=== PATIENT | female | born 1970 | race Caucasian/White ===

== ENCOUNTER 2021-07-04 16:48 | Inpatient (IN) | payer OTHER, SELFPAY ==
--- NOTE | 2021-06-28 11:41 | PCM.HP.BLA ---
History and Physical Date of Admission: 07/04/21 HPI: The patient is a 50 year old female presenting for pre-operative visit. She is scheduled for [facility], for AUB on 07/04/21. periods have gotten worse, they are heavy, bleeds through protection. Has completed child bearing nad had a previous Essure and endometrial ablation. Procedure discussed along with risks, benefits and complications. Other alternatives discussed for management. Consent form signed? Yes. ? ? PAST MEDICAL HISTORY PAST MEDICAL HISTORY Diagnosis Date ? History of deep vein thrombosis (DVT) of lower extremity 2010 ? approx, suspected due to OCPs. ? Parathyroid adenoma ? ? Thyroid disease ? ? ? PAST SURGICAL HISTORY PAST SURGICAL HISTORY Procedure Laterality Date ? ABDOMINAL SURGERY HX ? ? ? COLONOSCOP W/ OR W/O BRSH SPEC ? 05/01/2021 ? HERNIA REPAIR HX ? ? ? HYSTEROSCOPY,W/ENDOMETRIAL ABLATION ? 2005 ? approx, had dorsey to vagina ? LIGATE FALLOPIAN TUBE ? 2011 ? PAST SURGICAL HISTORY OF ? ? ? hernia repair ? PAST SURGICAL HISTORY OF ? ? ? T&A removal ? PAST SURGICAL HISTORY OF ? ? ? Left knee arthoscopic surgery ? PAST SURGICAL HISTORY OF ? 09/24/2006 ? Robotic right pyeloplasty ? TONSILLECTOMY HX ? CURRENT MEDICATIONS No current outpatient medications on file. ? Current Facility-Administered Medications Medication Dose Route Frequency Provider Last Rate Last Admin ? perflutren lipid microspheres 1.3 mL in NaCl (PF) 0.9% 10 mL injection (DEFINITY) INTRAVENOUS DIRECTED PRN V Yadiel Boytim, DO ? sodium chloride 0.9 % (flush) 10 mL (BD POSIFLUSH) 10 mL INTRAVENOUS DIRECTED PRN V Yadiel Boytim, DO ? ? ALLERGIES: Latex ? PERSONAL HISTORY: SOCIAL HISTORY Social History ? Tobacco Use ? Smoking status: Never Smoker ? Smokeless tobacco: Never Used Vaping Use ? Vaping Use: Never used Substance Use Topics ? Alcohol use: Yes ? ? Comment: seldom ? Drug use: Never ? FAMILY HISTORY: FAMILY HISTORY FAMILY HISTORY Problem Relation Age of Onset ? Prostate Cancer Father ? ? ? REVIEW OF SYMPTOMS: GENERAL: denies fevers or chills ENDOCRINOLOGY: has not been on steroids Cardiology : denies palpitations or chest pain Respiratory: denies SOB or cough Hematology: denies history of prolonged bleeding or easy bruising or VTE Allergy: Denies history of personal or family history of allergy to anesthesia PHYSICAL EXAMINATION: ? VITALS: Last menstrual period 04/17/2021. ? GENERAL: The patient is well nourished, well hydrated in no acute distress. , The patient is oriented to time, place, and person. NECK: Supple. No lynphadenopathy, normal thyroid, no thyromegaly. LUNGS: Clear to auscultation bilaterally. no wheezes, rhonchi or rales HEART: Regular rate and rhythm, Normal heart sounds and No murmurs or gallops GENITALIA: Normal external genitalia, Urethral meatus normal, Bladder nontender, normal vagina and normal vaginal tone, normal cervix, normal uterus, size and consistency, normal adnexa without masses or tenderness and perineum WNL ? PELVIC US 03/29/2021: ? Indication Abnormal uterine bleeding Impression anteverted Fibroid uterus that measures 100 mm x 54 mm x 60 mm. the largest fibroid is 1.6cm in greatest dimension. All fibroids appear to be intramural. The central endometrium complex measures 10.2 mm in combined thickness. No abnormal blood flow ?to suggest a polyp or focal endometrial pathology is observed within the endometrial complex. The contour of the endometrial cavity was normal on 3-D imaging. Both ovaries are visualized and appear normal. No adnexal masses were observed. There is no free fluid visualized in the peritoneal cavity. Other: h/o endometrial ablation, essure ? EMB 04/04/21- Early secretory phase endometrium and benign endocervical tissue ? IMPRESSION: AUB, failed ablation, intramural uterine fibroids ? PLAN: The risks/benefits/alternatives and personal involved for the planned TVH were reviewed with the patient. Her questions were answered to her satisfaction and she desires to proceed. Consent was signed. I reviewed with her postop instructions and expectations. ? ? I have reviewed and updated past medical and surgical history, medications and allergies This H&P was completed in my office on Jun 26, 2021
[2021-07-04] VITALS (35 sets, daily range): BP systolic 67–121; BP diastolic 46–74; PULSE 56–122; RESP 14–20; TEMP 36.2–37.4; O2SAT 94–100; BMI 29.0
--- NOTE | 2021-07-04 | IMM_PTH ---
PATIENT: LARA ARENAS LOC: MS3 U#:[id number] AGE/SX: 51/F [place]OM: [facility] [place] [place]07/04/[address]: Dr. Susanne Henry MD : 1970 BED: 1 DIS: 07/05/2021 SPEC #: [id number] RECD: 07/05/21 14:54 STATUS: MERVIN TOM #: [id number] TAYLOR: 07/04/21 00:[address]: Susanne Henry DEPT: IMMUNOHISTOCHEMISTRY RECD BY: Teresa Sharma Tissues: Uterus, NOS Procedures: p16 (initial) KI-67 (add) PHYSICIAN & [place] [id number] SPECIMEN INFORMATION: Tissue Source: Uterus Clinical Info: Abnormal uterine bleeding Specimen Number: [id number] #[id number] CPT code: 92248, 22673 METHODOLOGY: Deparaffinized sections of prefer/formalin-fixed tissue or PAP/DQ stained slides are incubated with monoclonal/polyclonal antibodies/oligonucleotide probes. Localization is made via biotin free immunoperoxidase method. Appropriate controls are performed and reacted as expected. Results on target cell population are indicated in the following table: RESULTS: ANTIBODY / CLONE RESULT Block 1 P16 (E6H4) negative Ki-67 (30-9) negative These tests were developed and their performance characteristics determined by [facility]. They may not have been cleared or approved by the U.S. Food and Drug Administration. The FDA has determined that such clearance or approval is not necessary. The above immunohistochemical/dualISH markers are ordered and reviewed by the Pathologist. INTERPRETATION: Uterus, hysterectomy: No HPV change seen. AM:tamar 07/08/2021
[2021-07-04] MEDS: Scopolamine 1mg/72hr Patch 1 PATCH TD (07:00)
[2021-07-04] MEDS: Acetaminophen 500 MG Tablet 1000 MG PO (07:00)
[2021-07-04] MEDS: Gabapentin 600 MG Tablet PO (07:00)
[2021-07-04] MEDS: Enoxaparin 40 MG/0.4 ML Syringe SC (07:00)
[2021-07-04] MEDS: Phenazopyridine 95 MG Tablet 190 MG PO (07:00)
[2021-07-04] MEDS: Lactated Ringers 1,000 ML 40 ML IV (07:00)
[2021-07-04 07:51] LABS: Hematocrit 38.9 % (37-47); Mean Corp Hgb Conc 33.4 g/dL (32-36); Mean Corpuscular Hgb 30.7 pg (27.0-32.0); Mean Corpuscular Volume 91.7 fL (81-99); Mean Platelet Vol. 9.2 fl (6.2-12.0); Platelet Count 354 K/mm3 (150-450); RBC Distribution Width CV 12.1 % (11.6-14.6); RBC Distribution Width SD 40.8 fl (35.1-43.9); Red Blood Count 4.24 M/mm3 (4.2-5.4); White Blood Count 5.5 K/mm3 (4.4-11.0)
[2021-07-04 07:53] LABS: Internal QC Validated? YES +Cl - CLEAR BKGD; Pregnancy, Urine Negative Negative
[2021-07-04 07:59] LABS: Magnesium 2.1 mg/dL (1.6-2.6)
[2021-07-04] MEDS: Celecoxib 200 MG Capsule 400 MG PO (08:00)
--- NOTE | 2021-07-04 09:20 | HYST_PTH ---
PATIENT: LARA ARENAS LOC: MS3 U#:[id number] AGE/SX: 51/F ROOM: [facility] RE07/04/[address]: Dr. Susanne Henry MD : 1970 BED: 1 DIS: 07/05/2021 SPEC #: [id number] RECD: 07/04/21 12:38 STATUS: MERVIN TOM #: [id number] TAYLOR: 07/04/21 09:[address]: Susanne Henry DEPT: SURGICAL PATHOLOGY RECD BY: Barbara Joseph Tissues: Uterus, NOS Procedures: Surgery Specimen Level V HEADER OPERATION: Vaginal hysterectomy, bilateral salpingectomy, cystoscopy PRE-OP DIAGNOSIS: Abnormal uterine bleeding TISSUE SUBMITTED: Cervix, uterus, bilateral fallopian tubes MICROSCOPIC DIAGNOSIS Uterus, hysterectomy: Cervix ?No evidence of dysplasia. Mild chronic inflammation and nabothian cysts. See comment. Endometrium ? proliferative endometrium with minimal disorder. Myometrium ? leiomyomas and focal adenomyosis. Right and left fallopian tubes - no pathologic change. AM:tamar 07/05/2021 COMMENT Results from immunohistochemistry ([id number]) for surrogate HPV marker (p16) will be reported separately. MICROSCOPIC DESCRIPTION Slides are reviewed. GROSS DESCRIPTION Received in fixative is one container labeled with the patient's name and designated uterus. The specimen consists of a uterus with attached cervix measuring 10 x 6 x 5.5 cm and weighing 133 gm. The ectocervix is grossly unremarkable. The endocervical canal measures 4 cm in length and is grossly unremarkable. The triangular endometrial cavity measures 4 x 3. The velvety, light escobar endometrium measures up to 0.2 cm in thickness. The myometrium measures 2.5 cm in average thickness and contains multiple rubbery nodules ranging in size from 0.7 to 1.5 cm and grossly resembling leiomyomas. The proximal portions of the right and left fallopian tubes contain Essure devices that are inked black and without migration. The specimen container contains fragments of fallopian tubes ranging in size from 1 to 3 cm. All fragments are grossly unremarkable. Die Fitter sections are submitted in nine cassettes as follows: 1 - anterior cervix, 2 - posterior cervix, 3 & 4 - anterior uterine wall, 5 & 6 - posterior myometrial wall, 7 ? myometrial masses, 8 ? one fallopian tube, 9 ? the other fallopian tube. / AM:tamar 07/04/21 TC:1 CPT: 29375
[2021-07-04 09:21] LABS: Bedside Glucose 96 mg/dL (70-110)
[2021-07-04] MEDS: dexAMETHasone 10 MG/ML Vial 8 MG IV (09:30)
--- NOTE | 2021-07-04 09:35 | PCM.DC ---
Discharge Instructions Activity Discharge Activity: May Not Drive (for 1 week and when pain is controlled to do so safely) and May Shower May resume sexual activity in: 6-8 weeks and - (Nothing in your vagina for 6 weeks. No vaginal or anal intercourse for 6-8 weeks) Dressing / Incision Cleanse incision/area with: Soap & Water and - (Your incisions have skin glue, it can get wet, leave the glue on until it falls off. ) Follow Up Care Please Follow Up With: Susanne Henry MD When: With my office in 1-2 and 6 weeks or as needed. [phone] Test Results: Test results from this visit will be discussed in further detail at your follow-up appointment, if applicable. Discharge Plan Admission Primary Reason for Your Visit: vaginal hysterectomy Attending Provider: Susanne Henry Instructions Patient Instructions: Hysterectomy Vaginal Dc Discharge Orders/Prescriptions Prescriptions: No Action ibuprofen 800 mg Tablet 800 mg PO Q6H PRN (Reason: Pain) RF: 0 Referrals / Follow Up: MAYA CHEN [Other] Disposition Disposition (needs filled in before D/C Order can be placed): Home, Self Care
[2021-07-04] MEDS: Lidocaine 1% /Epi 1:100 (20ml) 20 ML Vial (09:41)
[2021-07-04] MEDS: Lubricating Jelly 60 GM Tube 30 GM (10:48)
[2021-07-04] MEDS: Ondansetron 4 MG/2 ML Vial IV (11:07)
--- NOTE | 2021-07-04 11:23 | OP.PCM_ITS ---
Problems Associated Problem List Diagnoses (1) Abnormal uterine bleeding (AUB): (2) Intramural uterine fibroid: Report of Operation Date of Procedure: 07/04/21 Pre-Operative Diagnosis: AUB, intramural uterine fibroids Post-Operative Diagnosis: same Surgery/Procedure Performed:: TVH, bilateral salpingectomy, cystoscopy Description of Surgical Findings:: enlarged uterus, normal tubes and ovaries Surgeon: Susanne Henry operator receptionist: Shaitsa Jefferson Type of Anesthesia: General Anesthesiologist: Raffi Sweeney Special Medications: none Specimen's removed: uterus, cervix, bilteral tubes Drains: none Estimated Blood Loss (mL): 250 Fluids Replaced: 1100 Description of Procedure: The patient was taken to the operating room where she was prepped and draped in the normal sterile fashion in the dorsal lithotomy position. A weighted speculum was placed in the vagina and the anterior lip of the cervix was grasped with a Aaron clamp. The vaginal epithelium was infiltrated circumferentially around the cervix with 1% Xylocaine solution. An incision was made around the entire cervix with a scalpel and the vaginal epithelium was dissected back with blunt and sharp dissection. The anterior colpotomy incision was made sharply. Entry into the anterior cul-de-sac was confirmed by visualization of the uterine fundus and bowel behind the uterus. The posterior colpotomy was made with the Muñoz scissors. The posterior peritoneum was secured to the posterior vaginal cuff with an ecovdk-zr-nfrbf 0 Vicryl suture. The Victor Hugo retractor was placed in the posterior colpotomy incision. The uterosacral ligaments were clamped with Hernan clamps transected and suture ligated on both sides and excellent hemostasis of the pedicles was noted. The cardinal ligaments were clamped transected and suture ligated. The remainder of the cardinal ligament with the uterine arteries was clamped transected and suture ligated. The utero-ovarian ligaments and tubes were clamped transected and suture ligated. The uterus was brought out through the colpotomy incision intact. There was some oozing from the pedicle on the left side and a otfrxi-pm-olbcl suture was placed just below the cardinal ligament suture. Hemostasis was then noted. The left ovary and tube appeared normal. A Lidia clamp was placed across the left tube and it was transected with the Metzenbaum scissors and suture ligated. The same procedure was performed on the contralateral side. The pedicles were all examined again and found to be hemostatic. At this point a Garzon's culdoplasty was done with 2-0 PDS suture. Entering the posterior vaginal cuff the peritoneum was secured reefed across the peritoneum to the right uterosacral ligament, back across the peritoneum to the left uterosacral ligament and back out through the posterior vaginal wall. The vaginal cuff was then reapproximated horizontally with interrupted 0 Vicryl eeldpc-oh-wdeau sutures. The Garzon's sutures were tied down. The vaginal cuff was hemostatic and excellent support was noted. The Marx catheter was removed. A cystoscopy was performed. Both ureteral orifices were noted. The bladder was intact and grossly normal. The ureteral jets were noted on both sides. The fluid was removed. The instruments removed from the vagina and the urethra. The vaginal sweep was completed by me. All sponge lap and needle counts were correct. Patient was awakened and taken to the recovery room in stable condition. Grafts/Implants Used: none Procedure Start Time: 09:41 Procedure Stop Time: 11:12 Complications none Admit VTE Documentation VTE Present on Admission: No VTE Mechan Device Prophylaxis: SCD's VTE Pharm Prophylaxis ordered?: No Reason prophylaxis not ordered:: Procedure Not Indicated
[2021-07-04] MEDS: Lactated Ringers 1,000 ML 70 ML IV (12:27)
[2021-07-04 13:02] LABS: Hematocrit 36.1 % (37-47); Hemoglobin 11.5 g/dL (12.0-15.0); Mean Corp Hgb Conc 31.9 g/dL (32-36); Mean Corpuscular Hgb 29.9 pg (27.0-32.0); Mean Corpuscular Volume 93.8 fL (81-99); Mean Platelet Vol. 9.3 fl (6.2-12.0); Platelet Count 362 K/mm3 (150-450); RBC Distribution Width CV 12.1 % (11.6-14.6); Red Blood Count 3.85 M/mm3 (4.2-5.4); White Blood Count 15.6 K/mm3 (4.4-11.0)
[2021-07-04] MEDS: Mag Hydrox/Al Hydrox/Simeth 30 ML UDC PO (13:31)
--- NOTE | 2021-07-04 13:31 | EKG12_ITS ---
Test Reason : CP Blood Pressure : / mmHG Vent. Rate : 081 BPM Atrial Rate : 081 BPM P-R Int : 130 ms QRS Dur : 076 ms QT Int : 392 ms P-R-T Axes : 059 049 048 degrees QTc Int : 455 ms Normal sinus rhythm Nonspecific T wave abnormality Abnormal ECG Confirmed by ANA CARRION, ESAU ([id number]), food expeditor DALJIT ERWIN ([id number]) on 07/09/2021 7:36:22 AM Referred By: Susanne Henry Confirmed By:ESAU PEREZ MD
[2021-07-04 14:00] LABS: Troponin-I HS < 3 pg/mL (3.0-54.0)
[2021-07-04 14:48] LABS: Hematocrit 30.2 % (37-47); Hemoglobin 9.8 g/dL (12.0-15.0)
[2021-07-04] MEDS: Lactated Ringers 1,000 ML 100 ML IV (15:31)
--- NOTE | 2021-07-04 15:44 | SUR.PHASEI ---
PT RETURNING TO OR AT THIS TIME, AT BEDSIDE AND SIGNED CONSENT. PT ALERT CALM AND PLEASANT, MIN PAIN, MILD NAUSEA. PT DID VOID 600CC ON BEDPAN DK ORANGE URINE, SM AMT OF VAG BLEEDING, ABD VERY TENDER NOW
[2021-07-04 15:49] LABS: Fibrinogen 221 mg/dl (203-444)
[2021-07-04 16:02] LABS: Prothrombin Time (Protime)PT. 12.8 SECONDS (11.7-14.9)
[2021-07-04 16:18] LABS: Partial Thromboplast Time 25.9 Seconds (24.1-36.2)
--- NOTE | 2021-07-04 16:48 | OP.PCM_ITS ---
Problems Associated Problem List Diagnoses (1) Postoperative hemorrhage: (2) Acute blood loss anemia: Report of Operation Date of Procedure: 07/04/21 Pre-Operative Diagnosis: postoperative hemorrhage, acute blood loss anemia Post-Operative Diagnosis: same Surgery/Procedure Performed:: Laprascopic control of postop hemorrhage and evacuation of hematoma Surgeon: Susanne Henry sewage plant supervisor: Shaista Jefferson Type of Anesthesia: General Anesthesiologist: Raffi Sweeney Special Medications: none Specimen's removed: none Drains: olsen Estimated Blood Loss (mL): 200 Fluids Replaced: 1000 Description of Procedure: The patient was taken to the operating room where she was prepped and draped in the dorsolithotomy position. Her arms were tucked and care was taken to make sure the patient was placed in a neurologically safe in neutral position. A Olsen catheter was placed and sponge stick was placed in the vagina.. Attention was turned to the abdomen. All port sites were infiltrated with 0.5% Marcaine before skin incisions were made. A 5 mm left upper quadrant incision was made. The anterior abdominal wall was tented up with 2 towel clamps while a 5 mm blade less trocar and sleeve were [directly inserted]. Intraperitoneal placement was confirmed with the laparoscope. The pneumoperitoneum was created and the underlying abdominal contents were intact. It was noted that there were some omental adhesions around this area. We are able to see the left lower quadrant and that port was placed under direct visualization. The patient was placed in Trendelenburg. Right and left lower quadrant ports were placed under direct visualization lateral to the inferior epigastric vessels. The bowel was swept away and the above findings were noted. We then decided to place an umbilical incision so we did not have to keep manipulating the omental adhesions. The omental adhesions were inspected thoroughly and no bowel in the area where the port was placed. There is a moderate amount of hemoperitoneum. The suction warehouse receiving supervisor was used to remove some blood and clots. The bowel was swept out of the way. The left infundibulopelvic ligament was bleeding slightly where the tube would have been inserted. The LigaSure device was used to clamp, seal and secure the area. No active bleeding was then noted. There is just some small amount of oozing from the vaginal cuff. However around the right cardinal ligament there is noted to be some active bleeding. It was grasped with a grasper and pulled away from the sidewall and the LigaSure was used to clamp and seal the area. Hemostasis was noted. Vigorous and thorough irrigation was then performed. No active bleeding was noted. Some FloSeal was placed over the oozing areas and the pedicles were the active bleeding had been identified. It was left in place for 3 minutes. Then the access was suctioned off. Excellent hemostasis was still noted. Some Lyle was placed over the entire surgical area. No bleeding through the Lyle was noted. The pedicles were again examined and found to be hemostatic. The lateral ports were removed under direct visualization and no active bleeding was noted. The pneumoperitoneum was released. The skin incisions were closed with Monocryl suture in a subcuticular fashion and skin glue by Dr. Robles. The vaginal instruments were removed and the vaginal sweep was completed by me. The procedure was performed by me with assistance other than as dictated above. All sponge and needle counts were correct and the patient was taken to the recovery room in stable condition. Grafts/Implants Used: none Procedure Start Time: 15:59 Procedure Stop Time: 16:50 Complications none Admit VTE Documentation VTE Present on Admission: No VTE Mechan Device Prophylaxis: SCD's VTE Pharm Prophylaxis ordered?: Yes
[2021-07-04] MEDS: Lactated Ringers 500 ML 999 ML IV (18:00)
[2021-07-04 18:24] LABS: Hematocrit 27.9 % (37-47); Hemoglobin 9.1 g/dL (12.0-15.0); Mean Corp Hgb Conc 32.6 g/dL (32-36); Mean Corpuscular Hgb 31.1 pg (27.0-32.0); Mean Corpuscular Volume 95.2 fL (81-99); Mean Platelet Vol. 9.1 fl (6.2-12.0); Platelet Count 282 K/mm3 (150-450); RBC Distribution Width CV 12.3 % (11.6-14.6); RBC Distribution Width SD 43.4 fl (35.1-43.9); Red Blood Count 2.93 M/mm3 (4.2-5.4); White Blood Count 13.8 K/mm3 (4.4-11.0)
[2021-07-04] MEDS: Ketorolac 30 MG/ML Syringe IV (19:12)
[2021-07-04] MEDS: Lactated Ringers 1,000 ML 120 ML IV (20:52)
[2021-07-04] MEDS: Docusate Sodium 100 MG Capsule PO (22:36)
[2021-07-05 00:15] VITALS: BP 91/52; PULSE 102; RESP 18; TEMP 37; O2SAT 94
[2021-07-05] MEDS: Acetaminophen 500 MG Tablet 1000 MG PO ×3 (00:19→13:18)
[2021-07-05] MEDS: Ketorolac 30 MG/ML Syringe IV ×3 (00:19→13:20)
[2021-07-05 04:39] VITALS: BP 105/69; PULSE 88; RESP 18; TEMP 36.8; O2SAT 97
[2021-07-05] MEDS: Lactated Ringers 1,000 ML 120 ML IV (05:10)
[2021-07-05 07:12] LABS: Hematocrit 26.1 % (37-47); Hemoglobin 8.5 g/dL (12.0-15.0); Mean Corp Hgb Conc 32.6 g/dL (32-36); Mean Corpuscular Hgb 30.7 pg (27.0-32.0); Mean Corpuscular Volume 94.2 fL (81-99); Mean Platelet Vol. 9.7 fl (6.2-12.0); Platelet Count 297 K/mm3 (150-450); RBC Distribution Width CV 12.3 % (11.6-14.6); Red Blood Count 2.77 M/mm3 (4.2-5.4); White Blood Count 9.4 K/mm3 (4.4-11.0)
[2021-07-05 07:35] VITALS: BP 111/60; PULSE 88; RESP 16; TEMP 37.2; O2SAT 96
--- NOTE | 2021-07-05 08:44 | PN_ITS ---
Progress Note Patient's main plane is a mild headache. She thinks this might be from lack of caffeine. She also has abdominal pain, but mostly with moving. She is able to rest comfortably. No flatus. No nausea but not much of an appetite. No significant vaginal bleeding. Denies shortness of breath or chest pain. Did get up and ambulate in the hallways without difficulty. Physical Exam Narrative Awake, alert, no acute distress. Skin is warm dry and intact. Lower extremities have trace edema. Abdomen is soft, moderately distended some voluntary guarding. Incisions are clean dry and intact. Assessment & Plan Assessment/Plan (1) Acute blood loss anemia: (2) History of total vaginal hysterectomy (TVH): PLAN: Postoperative day #1 status post total vaginal hysterectomy and take back laparoscopy for postoperative hemorrhage. Hemoglobin is stable. Hemoglobin drop and acute blood loss anemia are appropriate for the blood loss suspected during the postoperative hemorrhage. I am not suspicious that there is any ongoing active bleeding. We will check another hemoglobin at noon. Encouraged ambulation. Likely discharge home later today with multivitamin and iron supplementation. Patient is comfortable with this plan.
[2021-07-05 09:36] VITALS: O2SAT 94
[2021-07-05] MEDS: Docusate Sodium 100 MG Capsule PO (09:46)
--- NOTE | 2021-07-05 11:15 | CASEMGMT ---
RN CM KENNEL WORKER CM to room to meet with patient for initial transition planning/care coordination assessment. RN CM introduced self and role at [facility]. Pt voices understanding and consents to assessment at this time. Pt resting in bed in no distress at this time. @ bedside. Pt is A/O at this time and answers all questions appropriately. Care providers, pharmacy, and demographics verified/updated at this time. PCP: Dr Ravi Singh--[facility] Specialists: Dr Henry Preferred Pharmacy: [facility] Insurance: MMO Prescription Benefit: yes Living Will/HPOA: Pt does not currently have LW/HCPOA and declines info at this time. LNOK: , Tritian Living Arrangements: Lives w/her and 5 adult children in one-story home w/no steps to enter. Independent. Transportation: Pt states drives self and states no transportation concerns at this time. also drives DME: Denies using any DME and denies needs. HHC/SNF: No hx of either. No needs identified. Pt wishes to return home and states has no concerns with going home at time of discharge. CM to follow for any discharge planning/needs. Pt voices no concerns/needs at this time. Advised pt to ask for CM if any questions/concerns/needs arise. Voices understanding. PLAN: Home Andrews GIBBS RN, CM
[2021-07-05 12:12] LABS: Hematocrit 28.7 % (37-47); Mean Corp Hgb Conc 31.4 g/dL (32-36); Mean Corpuscular Hgb 30.2 pg (27.0-32.0); Mean Corpuscular Volume 96.3 fL (81-99); Mean Platelet Vol. 9.1 fl (6.2-12.0); Platelet Count 330 K/mm3 (150-450); RBC Distribution Width CV 12.5 % (11.6-14.6); RBC Distribution Width SD 43.7 fl (35.1-43.9); Red Blood Count 2.98 M/mm3 (4.2-5.4); White Blood Count 10.6 K/mm3 (4.4-11.0)
--- NOTE | 2021-07-05 13:17 | PCM.PN.BLA ---
Progress Note Pain well. No flatus. Tolerating small amounts of regular diet and plenty of fluids. Has been up to urinate without difficulty. Denies lightheadedness or dizziness or palpitations. Physical Exam Narrative Awake, alert, no acute distress. Abdomen softly distended, no rebound, some mild guarding. Incisions are clean dry and intact with skin glue Assessment & Plan Assessment/Plan (1) History of total vaginal hysterectomy (TVH): PLAN: Postoperative day status post had total vaginal hysterectomy with take back laparoscopy for control of postoperative hemorrhage. Blood count is stabilized. No evidence of ongoing bleeding. Start iron once bowel movements begin. Discussed with her postop expectations and management. Follow-up in the office in 7 to 10 days or as needed. (2) Acute blood loss anemia:
--- NOTE | 2021-07-05 13:19 | PCM.DC ---
Discharge Instructions Activity May resume sexual activity in: 6-8 weeks and - (Nothing in your vagina for 6 weeks. No vaginal or anal intercourse for 6-8 weeks) Dressing / Incision Cleanse incision/area with: Soap & Water and - (Your incisions have skin glue, it can get wet, leave the glue on until it falls off. ) Follow Up Care Please Follow Up With: Susanne Henry MD Test Results: Test results from this visit will be discussed in further detail at your follow-up appointment, if applicable. Discharge Plan Admission Admit Date/Time: 07/04/21 16:48 Primary Reason for Your Visit: vaginal hysterectomy Attending Provider: Susanne Henry Instructions Patient Instructions: Hysterectomy Vaginal Dc Discharge Orders/Prescriptions Prescriptions: No Action ibuprofen 800 mg Tablet 800 mg PO Q6H PRN (Reason: Pain) RF: 0 Referrals / Follow Up: MAYA CHEN [Other]
[2021-07-05 13:39] VITALS: BP 107/65; PULSE 83; RESP 18; TEMP 36.8; O2SAT 97
== END 2021-07-05 14:00 | disposition home or self-care (01) | DRG 742 ==
LOC: MS3 07-05 07:09
PROVIDERS: Anesthesiology; Admitting Provider Obstetrics & Gynecology; Referring Provider Obstetrics & Gynecology; Visit Provider Obstetrics & Gynecology
PROC: 0TJB8ZZ Inspection of Bladder, Via Natural or Artificial Opening Endoscopic (ICD-10-PCS; CPT 58260; principal; 2021-07-04 09:00)
DX: N93.9 Abnormal uterine and vaginal bleeding, unspecified (principal); K66.1 Hemoperitoneum; D62 Acute posthemorrhagic anemia; D25.1 Intramural leiomyoma of uterus; K66.0 Peritoneal adhesions (postprocedural) (postinfection); Z86.718 Personal history of other venous thrombosis and embolism; Z80.42 Family history of malignant neoplasm of prostate
CPT/HCPCS: 36415; 81025; 82962; 83735; 84484; 85014; 85018; 85027; 85384; 85610; 85730; 86850; 86900; 86901; 86920; 86921; 86922; 88307; 88341; 88342; 93005; 99251; J7120; G0463; J1940; J2405

== ENCOUNTER 2021-10-29 18:35 | Emergency (ER) | payer OTHER, SELFPAY ==
[2021-10-29 18:36] VITALS: BP 137/70; PULSE 86; RESP 16; TEMP 36.3; O2SAT 98; BMI 30.1
--- NOTE | 2021-10-29 18:53 | CT_ITS ---
INDICATION: lower abd pain post hysterectomy EXAMINATION: CT Abdomen And Pelvis W/ Contrast Injection TECHNIQUE: Helically acquired images were obtained of the abdomen and pelvis after IV contrast. A radiation dose optimization technique was used for this scan. IV Contrast dosage and agent: IV 100mL Isovue-300 Oral contrast: None. COMPARISON: None. FINDINGS: Visualized lung bases: Unremarkable Liver: Unremarkable Gallbladder: Unremarkable Spleen: Unremarkable Pancreas: Unremarkable Adrenal Glands: Unremarkable Kidneys: 3 cm simple cyst in the right lower renal pole. Vasculature: Unremarkable GI Tract: Unremarkable Lymphadenopathy: None Peritoneum: No ascites. Bladder: Unremarkable Reproductive organs: Status post hysterectomy. Bones/Soft tissues: No suspicious osseous or soft tissue lesions CT/Abdomen/Pelvis W IV Cont ONLY IMPRESSION: No acute abnormalities in the abdomen or pelvis. Electronically Signed: William Muro MD at 20:44 EDT ,
--- NOTE | 2021-10-29 18:55 | ED.VIS.GI ---
HPI HPI - GI History of Present Illness Chief Complaint: GI Bleed Informant: patient Abdominal Pain/Flank Pain Onset: Weeks Context: Gradual Onset Timing: Continuous Quality: Cramping Location: RLQ and LLQ Current Severity: Mild Maximum Severity: Mild Nausea/Vomiting/Emesis GI Symptom: Negative for Nausea and Vomiting Diarrhea/Melena/Hematochezia GI Symptom: Positive for Hematochezia; Negative for Diarrhea and Melena Onset: Days Severity: Mild Associated Symptoms Associated Symptoms: Negative for Dysuria, Frequency, Hematuria and Urgency Narrative Narrative: 51-year-old female history of laparoscopic hysterectomy recently. She is also had 2 prior hernia repairs in her abdomen and a colonoscopy within the last 6 months. States that she Atrigel hysterectomy last 1 to 2 weeks ago has not felt well. Discussed lower abdominal pain some bloating. She has had some mild blood per rectum. Today she had heavier bleeding per rectum. States she just does not feel well. Denies any dysuria. Denies any fever. No hematemesis. No melena. She does have a history of low iron is on iron at home. She is not on any blood thinners. Prior similar symptoms: No Recent Illness/Hospitalization: Yes PFSH PFSH Medical History Back pain DVT (deep venous thrombosis) Heartburn History of COVID-19 History of edema Leg cramps Non-smoker Shortness of breath on exertion Wears contact lenses Home Medications ibuprofen 800 mg PO Q6H PRN 06/27/21 [History Last Taken Unknown] ferrous sulfate 325 mg DAILY 10/29/21 [History Last Taken Unknown] multivitamin 1 caplet DAILY 10/29/21 [History Last Taken Unknown] Allergy/AdvReac Type Severity Reaction Status Date / Time latex Allergy Itching Verified 06/27/21 08:58 Surgical History History of tonsillectomy and adenoidectomy Hx of arthroscopic knee surgery Hx of hernia repair Hx of tubal ligation Hx of ureter repair Social History Smoking Status: Never smoker ROS ROS ED ROS Narrative Rectal bleeding. Lower abdominal pain enclosed hysterectomy. Review of Systems ROS Unobtainable: Denies due to encephalopathy Constitutional Constitutional ED: Denies fever(s) or subjective ENT ENT ED: Denies ear pain Cardiovascular Cardiovascular: Denies chest pain or palpitations Respiratory/Chest Respiratory/Chest: Denies cough or dyspnea Gastrointestinal Gastrointestinal: Reports abdominal pain; Denies constipation, diarrhea, melena, nausea or vomiting Genitourinary Genitourinary ED: Denies dysuria Musculoskeletal Musculoskeletal: Denies myalgias Integumentary Denies rash Neurologic Neurologic: Denies headache(s) Psychiatric Psychiatric: Denies depression Endocrine Endocrinology: Denies polyuria Hematologic/Lymphatic Hematologic/Lymphatic: Denies easy bruising Allergic/Immunologic Allergic/Immunologic ED: Denies urticaria EXAM Physical Exam Narrative Exam Narrative: 51 female no acute distress vital signs stable afebrile. Pressure 137/70. Clinically looks well. H EENT exam unremarkable. Moist membranes. Lungs are clear. Heart regular rate and rhythm rate about 85. Abdomen soft nondistended normal bowel sounds no peritoneal signs. Mildly tender in both lower quadrants. Well-healing laparoscopy incisions. Moving all 4 extremities. Nontender no edema. Neurologically she is awake alert. Const Vital Signs: 10/29/21 18:36 10/29/21 21:44 Temperature 97.3 F L Temperature Source Temporal Pulse Rate 86 Respiratory Rate 16 17 Blood Pressure 137/70 H Blood Pressure Mean 92 Pulse Ox 98 98 Oxygen Delivery Method Room Air Room Air Positive well nourished and well developed; Negative for cachectic, contractures or unkempt General Appearance ED: well developed and NAD; Negative for unkempt, cachectic, contractures or pallor Nutritional Appearance: Negative for cachectic HEENT Reports moist mucous membranes normocephalic and atraumatic; Negative for trauma or tenderness Eyes PERRL and EOMs intact bilaterally General Eye ED: Negative for pale conjunctiva or scleral icterus Neck no lymphadenopathy, supple and no JVD General: Negative for tenderness Resp normal respiratory effort and clear to auscultation bilaterally Auscultation: Negative for rales, rhonchi or wheezes Cardio regular rate, regular rhythm, S1 normal heart sound, S2 normal heart sound and no murmurs GI non-distended and no masses; Negative for non-tender Inspection: Negative for abdominal distention Auscultation: normoactive bowel sounds; Negative for hypoactive bowel sounds Palpation: soft and tender; Negative for guarding, rigid or rebound tenderness present Back/Spine no CVA tenderness General Back: Negative for CVA tenderness Extremity full ROM General Extremety ED: Negative for edema or tenderness General Extremity: Negative for edema Neuro CN's II-XII intact bilaterally and moves all extremities Sensorium / Orientation: alert, oriented to person, oriented to place and oriented to time; Negative for orientation impaired, confused, lethargic or stuporous Psych mental status grossly normal and thought process normal Appearance: Negative for unkempt Skin General Skin Exam: Negative for jaundice or pallor Rashes: no rashes MDM MDM MDM Narrative Medical decision making narrative: 51-year-old status post hysterectomy several weeks ago. Abdominal pain and bloating for last couple weeks now with rectal bleeding. CAT scan labs are pending. Repeat exam patient is doing well at 10 PM. We went over her test results. She is has a follow-up appointment to see her NEEDLE PUNCH MACHINE OPERATOR tomorrow. Nurse present in the room rectal exam showed some external hemorrhoids they were tender. They were not thrombosed. There was bleeding. On rectal exam there was no mass and no blood. Lab Data Attestation: I reviewed the patient's lab results. Lab results narrative: CBC showed a white count 8.9. H&H 10.7 and 34.2. Electrolytes showed a gap of 5 normal BUN and creatinine of 12 and 1. Liver enzymes were normal. Urinalysis shows 10-25 white cells. No red cells. No nitrites and 1+ bacteria. She is having no urinary symptoms I will send a urine culture but not treat this. CAT scan read by the radiologist shows no acute abnormality. Reviewed by me. Labs: Laboratory Results - last 24 hr 10/29/21 10/29/21 10/29/21 19:35 19:35 19:40 WBC 8.9 RBC 4.28 Hgb 10.7 L Hct 34.2 L MCV 79.9 L MCH 25.0 L MCHC 31.3 L RDW Std Deviation 46.8 H RDW Coeff of Heidi 16.3 H Plt Count 434 MPV 9.4 Immature Gran % (Auto) 0.200 Neut % (Auto) 53.5 Lymph % (Auto) 32.7 [place] % (Auto) 10.2 H Eos % (Auto) 2.7 Baso % (Auto) 0.7 Absolute Neuts (auto) 4.7 Absolute Lymphs (auto) 2.89 Nucleated RBC % 0 Sodium 138 Potassium 3.6 Chloride 109 H Carbon Dioxide 24.0 Anion Gap 5 BUN 12 Creatinine 1.06 H Estim Creat Clear Calc 53.11 Est GFR (MDRD) Af Amer 71 Est GFR (MDRD) Non-Af 59 L BUN/Creatinine Ratio 11.3 Glucose 92 Calcium 9.3 Total Bilirubin 0.30 AST 12 L ALT 20 Alkaline Phosphatase 72 Total Protein 8.1 Albumin 3.9 Globulin 4.2 Albumin/Globulin Ratio 0.9 Urine Color Yellow Urine Clarity Clear Urine pH 5.0 Ur Specific [place] 1.020 Urine Protein Negative Urine Glucose (UA) Normal Urine Ketones 5 H Urine Occult Blood 25 H Urine Nitrite Negative Urine Bilirubin Negative Urine Urobilinogen Normal Ur Leukocyte Esterase 500 H Urine RBC 0 SEEN Urine WBC 10-25 SEEN Ur Squamous Epith Cells 0-5 SEEN Urine Bacteria 1+ Urine Mucus 0 SEEN Radiography Diagnostic Testing: Clinical Impression(s) from Imaging Studies Abdomen/Pelvis CT 10/29/21 18:53 IMPRESSION: No acute abnormalities in the abdomen or pelvis. Electronically Signed: William Muro MD at 20:44 EDT , Discharge Plan Triage Chief Complaint: GI Bleed Other Complaint: Abd Pain ED Provider: Dominick Charles Dx/Rx/DC Orders Clinical Impression: Abdominal pain, History of total vaginal hysterectomy (TVH), Bright red rectal bleeding Instructions: Abdominal Pain, ED Lower GI Bleeding (Stable) Prescriptions: No Action ibuprofen 800 mg Tablet 800 mg PO Q6H PRN (Reason: Pain) RF: 0 ferrous sulfate 325 mg (65 mg iron) tablet 325 mg DAILY RF: 0 multivitamin 1 caplet DAILY RF: 0 Referrals: Susanne Henry MD [STAFF PHYSICIAN] - 1 Day for another exam Activity Restrictions/Additional Instructions: Follow-up with your NEEDLE PUNCH MACHINE OPERATOR appointment with Dr. Susanne Henry tomorrow. Your labs today were unremarkable. You are anemic but it is improving. Your urine showed some white cells but you are not having urinary symptoms we will send that for culture if that returns positive we will notify you. Your CAT scan was unremarkable. There are few external hemorrhoids but none are currently actively bleeding. There may be internal hemorrhoids. If this continues you may need a colonoscopy. Disposition Disposition: Home, Self Care
[2021-10-29 19:44] LABS: Mucous, Urine 0 SEEN /hpf (<or=2+); Red Blood Cells-Urine 0 SEEN /hpf (0-5)
[2021-10-29 19:47] LABS: Color, Urine Yellow (Yellow); Glucose, Dipstick Normal (Normal); Ketone-Dipstick 5 mg/dl (Negative); Leukocyte Esterase-Dipstick 500 /ul (Negative); Nitrite-Dipstick Negative (Negative); Occult Blood-Urine 25 /ul (Negative); Protein-Dipstick Negative (Negative); Urine Bilirubin Dipstick Negative (Negative); Urine Clarity Clear (Clear); Urine Urobilinogen Normal (Normal)
[2021-10-29 19:55] LABS: Absolute Lymphocyte Count 2.89 X10^3/uL (0.83-4.51); Absolute Neutrophil Count 4.7 X10^3/uL (2.0-7.7); Basophil# 0.06 X10^3/uL; Basophil% 0.7 % (0-1); Eosinophil# 0.24 X10^3/uL; Eosinophils% 2.7 % (0-5); Hematocrit 34.2 % (37-47); Hemoglobin 10.7 g/dL (12.0-15.0); Lymphocyte # 2.89 X10^3/ul (0.83-4.51); Lymphocyte % 32.7 % (19-41); Mean Corp Hgb Conc 31.3 g/dL (32-36); Mean Corpuscular Volume 79.9 fL (81-99); Mean Platelet Vol. 9.4 fl (6.2-12.0); Monocyte% 10.2 % (0-10); NRBC Flagged by Analyzer 0 % (0-5); Neutrophil # 4.74 X10^3/uL (2.7-7.7); Neutrophil % 53.5 % (47-70); Platelet Count 434 K/mm3 (150-450); RBC Distribution Width CV 16.3 % (11.6-14.6); RBC Distribution Width SD 46.8 fl (35.1-43.9); Red Blood Count 4.28 M/mm3 (4.2-5.4); White Blood Count 8.9 K/mm3 (4.4-11.0)
[2021-10-29 19:57] LABS: Squamous Epithelial Cells - UA 0-5 SEEN /hpf (5-10)
[2021-10-29 19:58] LABS: Bacteria 1+ /hpf (None Seen); White Blood Cells 10-25 SEEN /hpf (0-5)
[2021-10-29 20:17] LABS: ALB/GLOB Ratio 0.9 RATIO (0.9-2.4); AST(SGOT) 12 U/L (15-37); Alanine Aminotransfer ALT/SGPT 20 U/L (13-56); Albumin, Serum 3.9 g/dL (3.2-5.0); Alkaline Phosphatase 72 U/L (45-117); Anion Gap 5 (5-15); BUN 12 mg/dL (7-18); BUN/Creat Ratio 11.3 RATIO (10-20); Calcium,Total 9.3 mg/dL (8.5-10.1); Chloride 109 mmol/L (98-107); Creatinine, Serum 1.06 mg/dL (0.55-1.02); EST Glomerular Filtration Rate 59 mL/min (>60); Est Glom Filt Rate - Afr Amer 71 mL/min (>60); Estimated Creatinine Clearance 53.11 ml/min; Globulin 4.2 g/dL (2.2-4.2); Glucose 92 mg/dL (74-106); Potassium 3.6 mmol/L (3.5-5.1); Protein, Total 8.1 g/dL (6.4-8.2); Sodium Level 138 mmol/L (136-145)
[2021-10-29 21:44] VITALS: RESP 17; O2SAT 98
[2021-10-29 22:08] VITALS: BP 112/71; PULSE 78; O2SAT 98
== END 2021-10-29 22:13 | disposition home or self-care (01) ==
PROVIDERS: Emergency Provider Emergency Medicine; Visit Provider Emergency Medicine
DX: R10.9 Unspecified abdominal pain (principal); R11.2 Nausea with vomiting, unspecified; Z90.710 Acquired absence of both cervix and uterus; K62.5 Hemorrhage of anus and rectum; R19.7 Diarrhea, unspecified; K64.4 Residual hemorrhoidal skin tags; R14.0 Abdominal distension (gaseous); Z86.16 Personal history of COVID-19; Z86.718 Personal history of other venous thrombosis and embolism
CPT/HCPCS: 74177; 80053; 81001; 85025; 87086; 87088; 99283; Q9967; A4216

== ENCOUNTER 2021-11-14 11:46 | Day surgery (SDC) | payer OTHER, SELFPAY ==
--- NOTE | 2021-11-05 09:54 | PCM.HP.BLA ---
History and Physical Date of Admission: 11/14/21 Brenda Justin is a 51 year old female who presents for problem visit for persistent vaginal/RLQ pain. S/p hysterectomy- TVH, then take back for postop hemorrhage. Pain intermittent and now persistent. Had placed local 2 days ago and this helped pain short term but when it wore off pain returned. When local was in place I attempted to remove a sharp suture in area of exquisite pain but had difficulty w/ access in the office. Some silver nitrate placed after. She had some reid discharge yesterday. ? OB History T2 L2 SAB0 IAB0 Ectopic0 Multiple0 Live Births2 ? [employer] History ? LMP: 06/22/2021 (Exact Date), Hysterectomy ? Age at Menarche: ? Age at First : ? Age at Menopause: ? [employer] History Comments: ? Sexual Activity: No sexual activity data on record; No partner data on record; hyst ? Contraception: Tubal Ligation, Surgical ? ? PAST MEDICAL HISTORY PAST MEDICAL HISTORY Diagnosis Date ? History of deep vein thrombosis (DVT) of lower extremity 2010 ? approx, suspected due to OCPs. ? Parathyroid adenoma ? ? Thyroid disease ? ? PAST SURGICAL HISTORY PAST SURGICAL HISTORY Procedure Laterality Date ? ABDOMINAL SURGERY HX ? ? ? COLONOSCOPY FLX DX W/COLLJ SPEC WHEN PFRMD ? 05/01/2021 ? HERNIA REPAIR HX ? ? ? HYSTEROSCOPY,W/ENDOMETRIAL ABLATION ? 2005 ? approx, had dorsey to vagina ? L'SCOPE DX W/WO BRUSHINGS/WASHINGS ? 07/04/2021 ? Take back for postop hemorrhage after TVH, control of hemorrhage ? LIGATE FALLOPIAN TUBE ? 2011 ? PAST SURGICAL HISTORY OF ? ? ? hernia repair ? PAST SURGICAL HISTORY OF ? ? ? T&A removal ? PAST SURGICAL HISTORY OF ? ? ? Left knee arthoscopic surgery ? PAST SURGICAL HISTORY OF ? 09/24/2006 ? Robotic right pyeloplasty ? TONSILLECTOMY HX ? ? ? VAG HYST 250 GM/< W/RMVL TUBE&/OVARY Bilateral 07/04/2021 ? tvh bilateral salpingectomy, postop hemorrhage and laparascopic take back ? FAMILY HISTORY FAMILY HISTORY Problem Relation Age of Onset ? Prostate Cancer Father ? ? SOCIAL HISTORY Social History ? Tobacco Use ? Smoking status: Never Smoker ? Smokeless tobacco: Never Used Vaping Use ? Vaping Use: Never used Substance Use Topics ? Alcohol use: Yes ? ? Comment: seldom ? Drug use: Never ? CURRENT MEDICATIONS Current Outpatient Medications Medication Sig ? ipratropium-albuterol (DUONEB) 0.5 mg-3 mg(2.5 mg base)/3 mL nebu ? ? ferrous sulfate (IRON) 325 mg (65 mg iron) tablet Take 1 tablet by mouth every other day. ? zolpidem (AMBIEN) 5 mg tablet Take 1 tablet by mouth at bedtime as needed for up to 14 days. FOR INSOMNIA ? ibuprofen (MOTRIN) 600 mg tablet Take 1 tablet by mouth every 6 hours as needed for pain. FOR PAIN. (Patient not taking: Reported on 10/30/2021 ) ? Current Facility-Administered Medications Medication Dose Route Frequency ? perflutren lipid microspheres 1.3 mL in NaCl (PF) 0.9% 10 mL injection (DEFINITY) INTRAVENOUS DIRECTED PRN ? sodium chloride 0.9 % (flush) 10 mL (BD POSIFLUSH) 10 mL INTRAVENOUS DIRECTED PRN ? Allergies As of Date: 11/01/2021 Allergen Noted Reaction LATEX 02/11/2008 Itching ? Fully Assessed 10/30/2021 ? Allergies and current medication updated:Yes ? EXAM: LMP 06/22/2021 GENERAL: pleasant, female in no apparent distress PELVIC: cuff intact, tender diffusely, also still has area to left of midline that is most tender. All pain refers to her left Otherwise normal introitus ? ASSESSMENT AND PLAN: vaginal pain s/p hyst. Reviewed op reports, no permanent suture used but PDS was used and seems to have suture knot in pinpoint area of most pain. D/w her removal may or may not help pain. At this point, the healing/support of her vagina will very likely not be affected by removal of this, but even if it is the suture needs removed. This may not resolve pain. Start pelvic floor PT. If this does not resolve pain may need to see [facility]/Pelvic pain clinic. Some concern about ovary adhered to cuff in area of pain as we did use floseal when she was taken back for the hemorrhage ? This H&P was completed in my officeon 11/01/21. Assessment & Plan Assessment/Plan (1) Vaginal pain: (2) Retained suture:
[2021-11-14] VITALS (9 sets, daily range): BP systolic 115–131; BP diastolic 76–81; PULSE 66–82; RESP 16; TEMP 36.8–37.3; O2SAT 96–100
--- NOTE | 2021-11-14 | VAGMU_PTH ---
PATIENT: LARA ARENAS LOC: [facility] – [place] U#:[id number] AGE/SX: 51/F ROOM: RE11/14/[address]: Dr. Susanne Henry MD : 1970 BED: DIS: 11/14/2021 SPEC #: [id number] RECD: 11/14/21 14:45 STATUS: MERVIN REJohn #: [id number] TAYLOR: 11/14/21 00:[address]: Susanne Henry DEPT: SURGICAL PATHOLOGY RECD BY: Dennis Rothman Tissues: Vagina, NOS Procedures: Surgery Specimen Level III HEADER OPERATION: Removal of scar tissue, exam under anesthesia PRE-OP DIAGNOSIS: Vaginal pain TISSUE SUBMITTED: Vaginal epithelium MICROSCOPIC DIAGNOSIS Vaginal epithelium: Fragments of squamous mucosa with chronic inflammation. SJ:tamar 11/18/2021 MICROSCOPIC DESCRIPTION Slides are reviewed. GROSS DESCRIPTION Received in fixative is one container labeled with the patient's name and designated vaginal epithelium. The specimen consists of multiple pieces of escobar mucosal tissue that in aggregate measure 2 x 1.5 x 0.3 cm. The specimen is totally submitted in one cassette. / SJ:tamar 11/15/2021 TC:3 CPT: 16843
[2021-11-14] MEDS: Lactated Ringers 1,000 ML 15 ML IV (12:50)
[2021-11-14] MEDS: Lidocaine 1% (20 ml mdv) 20 ML Vial (13:51)
--- NOTE | 2021-11-14 14:03 | OP.PCM_ITS ---
Problems Associated Problem List Diagnoses (1) Vaginal pain: (2) Vaginal scar: Report of Operation Date of Procedure: 11/14/21 Pre-Operative Diagnosis: vaginal pain Post-Operative Diagnosis: same + vaginal scar tissue Surgery/Procedure Performed:: Exam under anesthesia, removal of vaginal scar tissue Description of Surgical Findings:: Normal vulva, vagina w/ pink ruggae, cuff intact but firm, nodular scar tissue left vaginal apex Surgeon: Susanne Henry shellfish shucker: None Type of Anesthesia: MAC/Supplemental/Local Anesthesiologist: Carolin Moe Special Medications: none Specimen's removed: vaginal epithelium/scar tissue Drains: none Estimated Blood Loss (mL): 5 Fluids Replaced: 700 Description of Procedure: Patient was taken off murmur she is prepped and draped in dorsolithotomy position. I did not examine was able to identify the firmness nodular spot in the left vaginal apex that was tender in the office. It was grasped with an Allis clamp. I then placed a weighted speculum in the vagina and used an another speculum anteriorly to provide visualization. There is no definitive granulation tissue but there is definitely an area in the left apex that was more tight and firm and was tender in the operating room. No definitive suture was noted at this time. The area of interest was infiltrated with 1% lidocaine. I then used long Metzenbaum scissors to remove part of the vaginal tissue that was firm and dented in. Scar was removed. Approximately 1.5 x 1 cm area of vaginal epithelium was removed. Care was taken not to enter the peritoneal cavity. Again, no definitive suture could be palpated or identified. The area was then closed with 3-0 Vicryl suture in a running standard fashion and was hemostatic. The instruments were removed from the vagina and the vaginal sweep was completed by me. Sponge and needle counts were correct and the patient was taken the recovery room. Grafts/Implants Used: none Procedure Start Time: 13:47 Procedure Stop Time: 14:00 Complications none Admit VTE Documentation VTE Present on Admission: No VTE Mechan Device Prophylaxis: SCD's VTE Pharm Prophylaxis ordered?: No Reason prophylaxis not ordered:: Procedure Not Indicated
--- NOTE | 2021-11-14 14:07 | PCM.DC ---
Discharge Instructions Diet Discharge Diet: No restrictions Activity Return to work on:: 11/15/21 May shower in (days): 1 May resume sexual activity in: 1-2 weeks and 2 weeks Lifting Restrictions: none Dressing / Incision Call your doctor if your incision/area has: Sudden Increased Bleeding and Foul Smelling Discharge Call your doctor if you observe: Fever of 101 or Higher and Using more than 1 pad per hour (for 2 hrs in a row) Follow Up Care Please Follow Up With: Susanne Henry MD When: 2-4 weeks or as needed. Call [phone] to make an appointment or with any concerns. Test Results: Test results from this visit will be discussed in further detail at your follow-up appointment, if applicable. Discharge Plan Admission Primary Reason for Your Visit: Removal of vaginal scar tissue Attending Provider: Susanne Henry Discharge Orders/Prescriptions Prescriptions: No Action ibuprofen 800 mg Tablet 800 mg PO Q6H PRN (Reason: Pain) RF: 0 ferrous sulfate 325 mg (65 mg iron) tablet 325 mg DAILY RF: 0 Referrals / Follow Up: MAYA HERNANDEZ [Other] Disposition Disposition (needs filled in before D/C Order can be placed): Home, Self Care
[2021-11-14] MEDS: Lactated Ringers 1,000 ML 75 ML IV (14:44)
== END 2021-11-14 15:43 | disposition home or self-care (01) ==
LOC: SDC 11:49 → AC 11:50
PROVIDERS: Referring Provider Obstetrics & Gynecology; Visit Provider Obstetrics & Gynecology
PROC: (CPT 57410; principal; 2021-11-14 13:20)
DX: R10.2 Pelvic and perineal pain (principal); N89.8 Other specified noninflammatory disorders of vagina; Z80.42 Family history of malignant neoplasm of prostate; Z86.16 Personal history of COVID-19; Z90.710 Acquired absence of both cervix and uterus; Z86.718 Personal history of other venous thrombosis and embolism
CPT/HCPCS: 14040; 00940; 87426; 88304; J7120; J2405